=== PATIENT | male | born 1940 | race Caucasian/White ===

== ENCOUNTER 2017-11-23 17:51 | Inpatient (IN) | payer MEDICARE ==
[~2017-11-23] VITALS: Ht 167.6 cm; Wt 81.6 kg
[2017-11-23] MEDS ORDERED: AZEL137S7 BNOSTRILS (18:14)
[2017-11-23] MEDS ORDERED: META800T85 PO (18:14)
[2017-11-23] MEDS ORDERED: AMIO200T2 PO (18:14)
[2017-11-23] MEDS ORDERED: CALC500T3 PO (18:14)
[2017-11-23] MEDS ORDERED: METO5TAB7 PO (18:14)
[2017-11-23] MEDS ORDERED: LEVO150T8 PO (18:14)
[2017-11-23] MEDS ORDERED: CLON0.1T14 PO (18:14)
[2017-11-23] MEDS ORDERED: IV NORMAL SALINE 1000 ML BAG IV ONE (18:15)
--- NOTE | 2017-11-23 18:30 | NUR ---
EKG DONE. PT NOW AT CT.
[2017-11-23] MEDS ORDERED: [UNRECOGNIZED DRUG - OTHER] PO (18:45)
[2017-11-23] MEDS ORDERED: MIDO10TA PO (18:45)
[2017-11-23] MEDS ORDERED: NYST5ORA PO (18:45)
[2017-11-23] MEDS ORDERED: CINA30TA2 PO (18:45)
[2017-11-23] MEDS ORDERED: CICL6.1H5 INH (18:45)
[2017-11-23] MEDS ORDERED: CHOL100045 PO (18:45)
[2017-11-23] MEDS ORDERED: CARV12.5 PO (18:48)
[2017-11-23] MEDS ORDERED: PANT40TA2 PO (18:48)
[2017-11-23] MEDS ORDERED: CYAN10009 PO (18:48)
[2017-11-23] MEDS ORDERED: COLC0.6C3 PO (18:48)
[2017-11-23] MEDS ORDERED: PRED2.5T PO (18:48)
[2017-11-23] MEDS ORDERED: IPRA0.2S48 IH (19:11)
[2017-11-23] MEDS ORDERED: SEVE800T8 PO (19:11)
[2017-11-23] MEDS ORDERED: SILD50TA PO (19:11)
[2017-11-23] MEDS ORDERED: TRAZ-144 PO (19:11)
[2017-11-23] MEDS ORDERED: MONT10TA22 PO (19:11)
[2017-11-23] MEDS ORDERED: PSYLLIUM PO (19:11)
[2017-11-23] MEDS ORDERED: FEBU40TA PO (19:11)
[2017-11-23] MEDS ORDERED: HYDROCORTISONE PR (19:11)
[2017-11-23] MEDS ORDERED: DIPHENOXYLATE PO (19:11)
[2017-11-23] MEDS ORDERED: DIGO125T PO (19:11)
[2017-11-23] MEDS ORDERED: TAMS-3 PO (19:11)
[2017-11-23] MEDS ORDERED: FINA5TAB3 PO (19:11)
[2017-11-23] MEDS ORDERED: OMAL150V SQ (19:18)
[2017-11-23] MEDS ORDERED: ONDA4TAB5 PO (19:18)
[2017-11-23] MEDS ORDERED: RANI300T7 PO (19:18)
[2017-11-23] MEDS ORDERED: FURO-151 PO (19:18)
[2017-11-23] MEDS ORDERED: LEVO330T PO (19:18)
[2017-11-23] MEDS ORDERED: LACTOBACILLUS PO (19:18)
[2017-11-23] MEDS ORDERED: DICL100G16 TP (19:18)
--- NOTE | 2017-11-23 19:18 | NUR ---
AT BEDSIDE FOR MSE.
--- NOTE | 2017-11-23 19:18 | NUR ---
REPORT TAKEN FROM DAY SHIFT RN. ASSUMING PT CARE AT THIS TIME.
[2017-11-23 19:20] LABS: EOSINOPHILS # (AUTO) 0.4 K/uL (0.0-0.7)
--- NOTE | 2017-11-23 19:20 | NUR ---
PT BACK FORM CT. REPORT GIVEN TO LINCOLN GALO.
[2017-11-23 19:26] LABS: BASOPHILS # (AUTO) 0.1 K/uL (0.0-8.0); EOSINOPHILS % (AUTO) 3.9 % (0.0-7.0); HEMOGLOBIN 8.8 g/dL (12.5-16.3)
[2017-11-23 19:29] LABS: CARBON DIOXIDE 31 mmol/L (21-32); CHLORIDE 97 mmol/L (98-107); CREATININE 2.9 mg/dL (0.6-1.3); GLUCOSE 106 mg/dL (74-106); POTASSIUM 3.6 mmol/L (3.5-5.1); UREA NITROGEN, BLOOD 23 mg/dL (7-18)
[2017-11-23] MEDS ORDERED: ONDANSETRON 4 MG/2 ML VIAL IV ONE (19:30)
[2017-11-23] MEDS ORDERED: MORPHINE SULFATE 2 MG/1 ML DISP.SYRIN IV ONE (19:30)
[2017-11-23 19:31] LABS: BASOPHILS % (AUTO) 1.1 % (0.0-2.0); HEMATOCRIT 26.5 % (36.7-47.1); LYMPHOCYTES # (AUTO) 0.7 K/uL (20.0-40.0); LYMPHOCYTES % (AUTO) 6.6 % (20.5-51.5); MEAN CORPUSCULAR HEMOGLOBIN 30.7 uug (23.8-33.4); MEAN CORPUSCULAR HGB CONC 33 g/dL (32.5-36.3); MEAN CORPUSCULAR VOLUME 92.8 fL (73.0-96.2); MONOCYTES # (AUTO) 0.9 K/uL (2.0-10.0); MONOCYTES % (AUTO) 8.7 % (0.0-11.0); NEUTROPHILS # (AUTO) 8.5 K/uL (1.8-8.9); NEUTROPHILS % (AUTO) 79.7 % (38.5-71.5); PLATELET COUNT (AUTO) 297 K/uL (152-348); RED BLOOD CELL COUNT(AUTO) 2.86 MIL/uL (4.06-5.63); WHITE BLOOD COUNT (AUTO) 10.6 K/uL (3.6-10.2)
[2017-11-23 19:42] LABS: ALANINE AMINOTRANSFERASE 24 U/L (16-63); ALKALINE PHOSPHATASE 166 U/L (50-136); ASPARTATE AMINOTRANSFERASE 19 U/L (15-37); BILIRUBIN,DIRECT 0.2 mg/dL (0.0-0.2); BILIRUBIN,TOTAL 0.5 mg/dL (0.2-1.0); TOTAL PROTEIN, SERUM 6.6 g/dL (6.4-8.2)
[2017-11-23] MEDS ORDERED: ONDANSETRON 4 MG/2 ML VIAL ONE (19:47)
[2017-11-23] MEDS ORDERED: MORPHINE SULFATE 2 MG/1 ML DISP.SYRIN ONE (19:48)
--- NOTE | 2017-11-23 20:00 | NUR ---
PT HAS OPEN WEEPING SORES ON BOTH LOWER EXTREMITIES WHICH HE STATES ARE "FROM EXTRA FLUID NOT TAKEN FROM DIALYSIS"
--- NOTE | 2017-11-23 21:03 | NUR ---
REPORT GIVEN TO CLOVER العراقي.
[2017-11-23] MEDS ORDERED: PANTOPRAZOLE SODIUM IV 80 MG in IV DEXTROSE 5% 100 ML IV ONE (22:00)
[2017-11-23 22:20] LABS: DIGOXIN 1.1 ng/mL (0.9-2.0)
[2017-11-23 22:26] LABS: THYROID STIMULATING HORMONE 5.937 mIU/mL (0.358-3.740)
[2017-11-23] MEDS ORDERED: CLOPIDOGREL 75 MG TABLET PO ONE (22:30)
[2017-11-23] MEDS ORDERED: PANTOPRAZOLE SODIUM 40 MG VIAL ONE (22:50)
--- NOTE | 2017-11-23 22:57 | NUR ---
PT STATED HE SOMETIMES USES A BIPAP AT NIGHT
--- NOTE | 2017-11-23 22:57 | NUR ---
Pt. admitted to TELE, under care of Dr. WHITLEY Belongs List completed
--- NOTE | 2017-11-23 23:30 | NUR ---
NEW ADMIT FROM ER ADMITTED FOR HYPOTENSION, ON TELE WITH SINUS RHYTHM AT 74 C/O OF MILD PAIN TO BLES AWAITING ORDERS, NO RESP DISTRESS AT THIS TIME. BP IS 133/70. WILL CONTINUE TO MONITOR PT
[2017-11-24] VITALS (8 sets, daily range): BP systolic 87–108; BP diastolic 43–54
[2017-11-24] MEDS ORDERED: MAGNESIUM HYDROXIDE 30 ML LIQUID UDC PO PRN (00:30)
[2017-11-24] MEDS ORDERED: METAXALONE 800 MG TABLET PO PRN (00:30)
[2017-11-24] MEDS ORDERED: IPRATROPIUM BROMIDE 0.5 MG/2.5 ML NEBU IH PRN (00:30)
[2017-11-24] MEDS ORDERED: Medication Not On Formulary EA (Midodrine Hcl 10 MG) PO SCH (00:30)
[2017-11-24] MEDS ORDERED: CALCIUM CARBONATE 500 MG TABLET PO PRN (00:30)
[2017-11-24] MEDS ORDERED: ONDANSETRON 4 MG/2 ML VIAL IV PRN (00:30)
[2017-11-24] MEDS ORDERED: ACETAMINOPHEN 325 MG TABLET PO PRN (00:30)
[2017-11-24] MEDS ORDERED: TRAZODONE 50 MG TABLET PO PRN (00:30)
[2017-11-24] MEDS: HYDROCODONE/APAP 5-325MG TABLET PO PRN ×2 (02:22→08:12)
[2017-11-24] MEDS ORDERED: HYDROCODONE/APAP 5-325MG TABLET ONE (02:34)
[2017-11-24] MEDS: PANTOPRAZOLE SODIUM 40 MG TABLET.DR PO SCH (08:06)
[2017-11-24] MEDS: LEVOTHYROXINE SODIUM 150 MCG TABLET PO SCH (08:14)
[2017-11-24] MEDS ORDERED: DIPHENOXYLATE HCL/ATROP SULF TABLET PO PRN (08:15)
[2017-11-24] MEDS: METRONIDAZOLE 500 MG/NS 100ML 500 MG in PREMIXED 1 EACH IV SCH ×3 (08:36→21:26)
--- NOTE | 2017-11-24 08:42 | NUR ---
Nurse Notes: Patient was seen by Dr Veloz, nephrology seen patient at bedside, will schedule dialysis tomorrow, medicated for low back pain with Colbert 5/325, IV antibiotics Flagyl is infusing thru hep lock right antecubital.
[2017-11-24] MEDS ORDERED: LEVOCARNITINE 330 MG TABLET PO SCH (09:00)
[2017-11-24] MEDS ORDERED: Medication Not On Formulary EA (Colchicine 0.6 MG) PO SCH (09:00)
[2017-11-24] MEDS ORDERED: MONTELUKAST SODIUM 10 MG TABLET PO SCH (09:00)
[2017-11-24] MEDS ORDERED: RANITIDINE HCL 300 MG PO SCH (09:00)
[2017-11-24] MEDS ORDERED: LACTOBACILLUS PO SCH (09:00)
[2017-11-24] MEDS ORDERED: PSYLLIUM 0.52 GM PO SCH (09:00)
[2017-11-24] MEDS ORDERED: TAMSULOSIN HCL 0.4 MG CAP.SR.24H PO SCH (09:00)
[2017-11-24] MEDS ORDERED: CHOLECALCIFEROL PO SCH (09:00)
[2017-11-24] MEDS: predniSONE 2.5 MG TABLET PO SCH (09:53)
[2017-11-24] MEDS: COLCHICINE 0.6 MG TABLET PO SCH ×2 (09:53→18:08)
[2017-11-24] MEDS: CYANOCOBALAMIN 1,000 MCG TABLET PO SCH (09:53)
[2017-11-24] MEDS: LACTOBACILLUS RHAMNOSUS GG 1 EACH CAPSULE PO SCH ×2 (09:53→21:26)
[2017-11-24] MEDS: CINACALCET HCL 30 MG TABLET PO SCH (09:54)
[2017-11-24] MEDS: CHOLECALCIFEROL 400 UNITS TABLET PO SCH (09:54)
[2017-11-24] MEDS: VANCOMYCIN FOR PO/GT/NG USE PO SCH ×4 (09:54→23:59)
[2017-11-24] MEDS: PSYLLIUM SEED PACKET PO SCH (09:54)
[2017-11-24] MEDS ORDERED: EPOETIN ALFA 20,000 UNIT/ML ML SQ ONE (09:59)
[2017-11-24] MEDS: SEVELAMER CARBONATE 800 MG TABLET PO SCH ×2 (12:41→18:00)
[2017-11-24] MEDS: CARVEDILOL 12.5 MG TABLET PO SCH ×2 (13:12→18:00)
[2017-11-24] MEDS: AMIODARONE HCL 200 MG TABLET PO SCH ×2 (13:13→18:02)
[2017-11-24] MEDS: SILDENAFIL 20 MG TABLET PO SCH ×2 (14:47→21:26)
[2017-11-24 15:09] LABS: BASOPHILS # (AUTO) 0.1 K/uL (0.0-8.0); BASOPHILS % (AUTO) 1.1 % (0.0-2.0); EOSINOPHILS # (AUTO) 0.3 K/uL (0.0-0.7); EOSINOPHILS % (AUTO) 2.5 % (0.0-7.0); HEMATOCRIT 24.6 % (36.7-47.1); LYMPHOCYTES # (AUTO) 0.4 K/uL (20.0-40.0); LYMPHOCYTES % (AUTO) 3.2 % (20.5-51.5); MEAN CORPUSCULAR HEMOGLOBIN 30.3 uug (23.8-33.4); MEAN CORPUSCULAR HGB CONC 33 g/dL (32.5-36.3); MEAN CORPUSCULAR VOLUME 92.8 fL (73.0-96.2); MONOCYTES % (AUTO) 8.7 % (0.0-11.0); NEUTROPHILS # (AUTO) 9.4 K/uL (1.8-8.9); NEUTROPHILS % (AUTO) 84.5 % (38.5-71.5); PLATELET COUNT (AUTO) 271 K/uL (152-348); RED BLOOD CELL COUNT(AUTO) 2.64 MIL/uL (4.06-5.63); WHITE BLOOD COUNT (AUTO) 11.2 K/uL (3.6-10.2)
[2017-11-24 15:22] LABS: CARBON DIOXIDE 33 mmol/L (21-32); CHLORIDE 96 mmol/L (98-107); CREATININE 4.2 mg/dL (0.6-1.3); GLUCOSE 154 mg/dL (74-106); POTASSIUM 4.3 mmol/L (3.5-5.1); UREA NITROGEN, BLOOD 37 mg/dL (7-18)
[2017-11-24] MEDS ORDERED: COLLAGENASE OINT 30 GM TUBE TOP SCH (16:30)
--- NOTE | 2017-11-24 16:30 | NUR ---
Lower leg dressing not changed, Santyl ointment is non-formulary. was at bedside earlier, Pharmacy notified that the could be notified if Santyl ointment can be obtained. Dressing is dry and intact, no dressing change was done.
--- NOTE | 2017-11-24 16:33 | NUR ---
Patient's wanted updates on the patient, MANAGER CRITICAL CARE Thompson Hartman was called and return call and answer all of 's questions, was very grateful, for nurse and MANAGER CRITICAL CARE to give immediate answers. IV site was restarted earlier by ICU nurse, remains on IV flagyl. patient was given 1 dose of Procrit.
[2017-11-24] MEDS: Z GUARD REMEDY PASTE 57 GM TUBE TOP PRN (18:47)
[2017-11-24] MEDS ORDERED: FINASTERIDE 5 MG TABLET PO SCH (21:00)
[2017-11-25 00:05] VITALS: BP 110/68
[2017-11-25] MEDS: SILDENAFIL 20 MG TABLET PO SCH (06:00)
[2017-11-25] MEDS: LEVOTHYROXINE SODIUM 150 MCG TABLET PO SCH (06:07)
[2017-11-25] MEDS: METRONIDAZOLE 500 MG/NS 100ML 500 MG in PREMIXED 1 EACH IV SCH ×2 (06:07→16:09)
[2017-11-25] MEDS: VANCOMYCIN FOR PO/GT/NG USE PO SCH ×4 (06:07→23:25)
[2017-11-25] MEDS: PANTOPRAZOLE SODIUM 40 MG TABLET.DR PO SCH (06:07)
[2017-11-25 06:10] VITALS: BP 114/61
[2017-11-25 06:41] VITALS: BP 108/57
[2017-11-25 06:49] LABS: BASOPHILS # (AUTO) 0.1 K/uL (0.0-8.0); BASOPHILS % (AUTO) 1.2 % (0.0-2.0); EOSINOPHILS # (AUTO) 0.4 K/uL (0.0-0.7); EOSINOPHILS % (AUTO) 3.9 % (0.0-7.0); HEMATOCRIT 26.2 % (36.7-47.1); HEMOGLOBIN 8.3 g/dL (12.5-16.3); LYMPHOCYTES # (AUTO) 0.7 K/uL (20.0-40.0); LYMPHOCYTES % (AUTO) 7.4 % (20.5-51.5); MEAN CORPUSCULAR HEMOGLOBIN 29.8 uug (23.8-33.4); MEAN CORPUSCULAR HGB CONC 32 g/dL (32.5-36.3); MEAN CORPUSCULAR VOLUME 93.6 fL (73.0-96.2); MONOCYTES % (AUTO) 9.9 % (0.0-11.0); NEUTROPHILS # (AUTO) 7.7 K/uL (1.8-8.9); NEUTROPHILS % (AUTO) 77.6 % (38.5-71.5); PLATELET COUNT (AUTO) 275 K/uL (152-348); RED BLOOD CELL COUNT(AUTO) 2.79 MIL/uL (4.06-5.63); WHITE BLOOD COUNT (AUTO) 9.9 K/uL (3.6-10.2)
[2017-11-25] MEDS ORDERED: PANTOPRAZOLE SODIUM 40 MG TABLET.DR PO SCH (07:00)
[2017-11-25 07:11] LABS: CARBON DIOXIDE 31 mmol/L (21-32); CHLORIDE 100 mmol/L (98-107); CHOLESTEROL 109 mg/dL (<200); CREATININE 4.9 mg/dL (0.6-1.3); GLUCOSE 112 mg/dL (74-106); HDL CHOLESTEROL 30 mg/dL (40-60); MAGNESIUM 1.8 mg/dL (1.8-2.4); PHOSPHOROUS 4.1 mg/dL (2.5-4.9); POTASSIUM 4.4 mmol/L (3.5-5.1); TRIGLYCERIDES 142 MG/DL (30-150); UREA NITROGEN, BLOOD 43 mg/dL (7-18)
--- NOTE | 2017-11-25 07:15 | NUR ---
Received pt in bed, no acute distress noted. On Ns at 3L/min, respirations even and unlabored. Pt denies any SOB. IV to right F/A intact and patent. AV fistula to left hand, bruit present. Pt was seen by histology specialist this am, see notes. Call light within reach, bed kept low/locked position.
[2017-11-25 07:30] LABS: THYROID STIMULATING HORMONE 7.733 mIU/mL (0.358-3.740)
[2017-11-25] MEDS: CARVEDILOL 12.5 MG TABLET PO SCH (08:00)
[2017-11-25] MEDS: LACTOBACILLUS RHAMNOSUS GG 1 EACH CAPSULE PO SCH ×2 (08:39→21:33)
[2017-11-25] MEDS: CINACALCET HCL 30 MG TABLET PO SCH (08:39)
[2017-11-25] MEDS: PSYLLIUM SEED PACKET PO SCH (08:39)
[2017-11-25] MEDS: SEVELAMER CARBONATE 800 MG TABLET PO SCH ×3 (08:40→17:31)
[2017-11-25] MEDS: COLCHICINE 0.6 MG TABLET PO SCH ×2 (08:40→17:31)
[2017-11-25] MEDS: CYANOCOBALAMIN 1,000 MCG TABLET PO SCH (08:40)
[2017-11-25] MEDS: CHOLECALCIFEROL 400 UNITS TABLET PO SCH (08:40)
[2017-11-25] MEDS: predniSONE 2.5 MG TABLET PO SCH (08:40)
[2017-11-25] MEDS: AMIODARONE HCL 200 MG TABLET PO SCH ×2 (08:40→17:32)
--- NOTE | 2017-11-25 09:59 | NUR ---
WOUND CARE CONSULT: PT PRESENTS WITH MULTIPLE DRY ULCERS TO LOWER LEGS AND DEEP TISSUE INJURY (INTACT) TO RT HEEL. DR HEREDIA WAS IN TO EXAMINE PT AND PEELING CRUSTY SKIN WAS REMOVED FROM RT HEEL BY DPM. RECOMMENDATIONS MADE FOR SKIN PROTECTION AND ORDERS RECEIVED FROM DR DAVILA FOR WOUND CARE. DISCUSSED WITH NURSING STAFF. ALL SKIN PROTECTION MEASURES IN PLACE. WILL SEE PRN. CURRENT JAVON SCORE IS 14. MD IN AGREEMENT WITH PLAN OF CARE. Addendum: 11/25/17 at 1002 by RONNELL SNOWDEN RN Amended: Links added.
[2017-11-25 11:34] VITALS: BP 113/58
[2017-11-25] MEDS: MIDODRINE HCL 5 MG TABLET PO PRN (11:37)
--- NOTE | 2017-11-25 11:37 | NUR ---
Midodrine Po given for schedule HD in one hour. b/p 100/53. Physical therapist at bedside for evaluation.
--- NOTE | 2017-11-25 12:30 | NUR ---
HD initiated, no distress noted.
[2017-11-25 15:22] VITALS: BP 119/52
--- NOTE | 2017-11-25 15:30 | NUR ---
HD completed with 2.5L output. No acute distress noted. Pt sleeping at this time.
[2017-11-25] MEDS: CADEXOMER IODINE 40 GM TUBE TOP SCH (16:10)
--- NOTE | 2017-11-25 18:30 | NUR ---
No acute distress noted,1st step air mattress on as requested by quarrying specialist. Pt denies any pain or discomfort.
[2017-11-25 20:00] VITALS: BP 119/63
[2017-11-25] MEDS: CLOTRIMAZOLE 1% CREAM 30 GM TUBE TOP SCH ×3 (21:00→21:37)
[2017-11-25] MEDS: Z GUARD REMEDY PASTE 57 GM TUBE TOP PRN (21:34)
--- NOTE | 2017-11-25 23:33 | NUR ---
Lotrimin is not given because it is not available.
[2017-11-25] MEDS: HYDROCODONE/APAP 5-325MG TABLET PO PRN (23:54)
[2017-11-26 04:18] VITALS: BP 116/60
[2017-11-26] MEDS: VANCOMYCIN FOR PO/GT/NG USE PO SCH ×3 (06:27→17:31)
[2017-11-26] MEDS: LEVOTHYROXINE SODIUM 150 MCG TABLET PO SCH (06:27)
[2017-11-26] MEDS: PANTOPRAZOLE SODIUM 40 MG TABLET.DR PO SCH (06:27)
[2017-11-26 07:38] LABS: BASOPHILS # (AUTO) 0.1 K/uL (0.0-8.0); BASOPHILS % (AUTO) 1.3 % (0.0-2.0); EOSINOPHILS # (AUTO) 0.5 K/uL (0.0-0.7); EOSINOPHILS % (AUTO) 5.6 % (0.0-7.0); HEMATOCRIT 27.9 % (36.7-47.1); LYMPHOCYTES # (AUTO) 0.9 K/uL (20.0-40.0); LYMPHOCYTES % (AUTO) 9.5 % (20.5-51.5); MEAN CORPUSCULAR HEMOGLOBIN 30.3 uug (23.8-33.4); MEAN CORPUSCULAR HGB CONC 32 g/dL (32.5-36.3); MEAN CORPUSCULAR VOLUME 94.1 fL (73.0-96.2); MONOCYTES # (AUTO) 0.8 K/uL (2.0-10.0); MONOCYTES % (AUTO) 8.6 % (0.0-11.0); PLATELET COUNT (AUTO) 252 K/uL (152-348); RED BLOOD CELL COUNT(AUTO) 2.96 MIL/uL (4.06-5.63); WHITE BLOOD COUNT (AUTO) 9.3 K/uL (3.6-10.2)
[2017-11-26 07:43] LABS: ALANINE AMINOTRANSFERASE 21 U/L (16-63); ALKALINE PHOSPHATASE 173 U/L (50-136); ASPARTATE AMINOTRANSFERASE 20 U/L (15-37); BILIRUBIN,TOTAL 0.5 mg/dL (0.2-1.0); CARBON DIOXIDE 33 mmol/L (21-32); CHLORIDE 98 mmol/L (98-107); CREATININE 4.4 mg/dL (0.6-1.3); GLUCOSE 81 mg/dL (74-106); PHOSPHOROUS 3.3 mg/dL (2.5-4.9); POTASSIUM 4.2 mmol/L (3.5-5.1); TOTAL PROTEIN, SERUM 6.7 g/dL (6.4-8.2); UREA NITROGEN, BLOOD 37 mg/dL (7-18)
[2017-11-26] MEDS: COLCHICINE 0.6 MG TABLET PO SCH ×2 (09:01→17:28)
[2017-11-26] MEDS: PSYLLIUM SEED PACKET PO SCH (09:01)
[2017-11-26] MEDS: CHOLECALCIFEROL 400 UNITS TABLET PO SCH (09:01)
[2017-11-26] MEDS: SEVELAMER CARBONATE 800 MG TABLET PO SCH ×3 (09:01→17:28)
[2017-11-26] MEDS: CYANOCOBALAMIN 1,000 MCG TABLET PO SCH (09:01)
[2017-11-26] MEDS: LACTOBACILLUS RHAMNOSUS GG 1 EACH CAPSULE PO SCH ×2 (09:01→20:27)
[2017-11-26] MEDS: CINACALCET HCL 30 MG TABLET PO SCH (09:11)
[2017-11-26] MEDS: CLOTRIMAZOLE 1% CREAM 30 GM TUBE TOP SCH ×2 (09:11→20:32)
[2017-11-26] MEDS: AMIODARONE HCL 200 MG TABLET PO SCH ×2 (09:11→17:28)
[2017-11-26] MEDS: CADEXOMER IODINE 40 GM TUBE TOP SCH (09:14)
[2017-11-26] MEDS: predniSONE 2.5 MG TABLET PO SCH (09:14)
[2017-11-26 11:36] VITALS: BP 117/65
[2017-11-26 13:54] LABS: IRON, SERUM 14 ug/dL (50-175)
[2017-11-26 16:26] VITALS: BP 120/70
--- NOTE | 2017-11-26 20:00 | NUR ---
RECEIVED PT AWAKE IN BED, HE'S ALERT AND ORIENTED X3 AND ABLE TO STATE HIS NEEDS. HE DENIES PAIN OR DISCOMFORT, CALL LIGHT LEFT WITHIN PT'S REACH, WILL CONTINUE TO MONITOR PT
[2017-11-26 20:11] VITALS: BP 121/65
[2017-11-27] MEDS: VANCOMYCIN FOR PO/GT/NG USE PO SCH ×5 (00:31→23:28)
[2017-11-27] MEDS: HYDROCODONE/APAP 5-325MG TABLET PO PRN (02:46)
[2017-11-27 04:00] VITALS: BP 139/71
[2017-11-27] MEDS: LEVOTHYROXINE SODIUM 150 MCG TABLET PO SCH (06:27)
[2017-11-27] MEDS: PANTOPRAZOLE SODIUM 40 MG TABLET.DR PO SCH (06:27)
--- NOTE | 2017-11-27 08:00 | NUR ---
Pt forgetful. Pt is in no acute distress. Call light is within reach. Awaiting Dialysis today. Bruit present on left arm av shunt.
[2017-11-27 09:10] LABS: BASOPHILS # (AUTO) 0.1 K/uL (0.0-8.0); BASOPHILS % (AUTO) 1.3 % (0.0-2.0); EOSINOPHILS # (AUTO) 0.4 K/uL (0.0-0.7); HEMATOCRIT 28.5 % (36.7-47.1); HEMOGLOBIN 9.2 g/dL (12.5-16.3); LYMPHOCYTES # (AUTO) 0.9 K/uL (20.0-40.0); LYMPHOCYTES % (AUTO) 8.8 % (20.5-51.5); MEAN CORPUSCULAR HEMOGLOBIN 30.1 uug (23.8-33.4); MEAN CORPUSCULAR HGB CONC 32 g/dL (32.5-36.3); MEAN CORPUSCULAR VOLUME 93.5 fL (73.0-96.2); MONOCYTES % (AUTO) 10.2 % (0.0-11.0); NEUTROPHILS # (AUTO) 7.7 K/uL (1.8-8.9); NEUTROPHILS % (AUTO) 75.7 % (38.5-71.5); PLATELET COUNT (AUTO) 242 K/uL (152-348); RED BLOOD CELL COUNT(AUTO) 3.05 MIL/uL (4.06-5.63); WHITE BLOOD COUNT (AUTO) 10.2 K/uL (3.6-10.2)
[2017-11-27] MEDS: PSYLLIUM SEED PACKET PO SCH (09:15)
[2017-11-27] MEDS: CHOLECALCIFEROL 400 UNITS TABLET PO SCH (09:16)
[2017-11-27] MEDS: CYANOCOBALAMIN 1,000 MCG TABLET PO SCH (09:16)
[2017-11-27] MEDS: SEVELAMER CARBONATE 800 MG TABLET PO SCH ×3 (09:16→17:55)
[2017-11-27] MEDS: LACTOBACILLUS RHAMNOSUS GG 1 EACH CAPSULE PO SCH ×2 (09:16→20:28)
[2017-11-27] MEDS: CINACALCET HCL 30 MG TABLET PO SCH (09:16)
[2017-11-27] MEDS: AMIODARONE HCL 200 MG TABLET PO SCH ×2 (09:17→17:55)
[2017-11-27] MEDS: predniSONE 2.5 MG TABLET PO SCH (09:17)
[2017-11-27] MEDS: COLCHICINE 0.6 MG TABLET PO SCH ×2 (09:17→17:55)
[2017-11-27] MEDS: CADEXOMER IODINE 40 GM TUBE TOP SCH (09:19)
[2017-11-27] MEDS: MIDODRINE HCL 5 MG TABLET PO PRN (09:19)
[2017-11-27] MEDS: CLOTRIMAZOLE 1% CREAM 30 GM TUBE TOP SCH ×2 (09:20→20:28)
[2017-11-27 09:21] LABS: ALANINE AMINOTRANSFERASE 40 U/L (16-63); ALKALINE PHOSPHATASE 236 U/L (50-136); ASPARTATE AMINOTRANSFERASE 53 U/L (15-37); BILIRUBIN,TOTAL 0.5 mg/dL (0.2-1.0); CARBON DIOXIDE 35 mmol/L (21-32); CHLORIDE 98 mmol/L (98-107); CREATININE 5.7 mg/dL (0.6-1.3); GLUCOSE 94 mg/dL (74-106); PHOSPHOROUS 3.4 mg/dL (2.5-4.9); POTASSIUM 4.3 mmol/L (3.5-5.1); TOTAL PROTEIN, SERUM 6.6 g/dL (6.4-8.2); UREA NITROGEN, BLOOD 48 mg/dL (7-18)
[2017-11-27 11:41] VITALS: BP 120/59
[2017-11-27] MEDS ORDERED: SOD FERRIC GLUC COMPLX/SUCROSE 125 MG in IV NORMAL SALINE 100 ML IV SCH (14:00)
[2017-11-27 15:26] VITALS: BP 114/65
--- NOTE | 2017-11-27 18:00 | NUR ---
Pt is in no acute distress. Dressing changed on LE's as ordered. noted right and left foot wound and serous drainage. Pt tolerated dialysis
--- NOTE | 2017-11-27 20:20 | NUR ---
A/0 X4 lying on a air mattress On Med Surg status O2A2 2l N/c at 97% on contact Isolation for c-diff. Lungs clear bilat. Lt a/v shut good thrill and bruitt, Abd soft non tender b/s x4 Bilat heel wounds dressing c/d/i Denies of any distress. Side rails up call light within reach bed in lowest postion bed side table within arm reach.
[2017-11-27 20:32] VITALS: BP 126/79
[2017-11-28] MEDS: HYDROCODONE/APAP 5-325MG TABLET PO PRN ×2 (01:21→06:22)
[2017-11-28 04:51] VITALS: BP 125/75
[2017-11-28] MEDS: LEVOTHYROXINE SODIUM 150 MCG TABLET PO SCH (06:21)
[2017-11-28] MEDS: VANCOMYCIN FOR PO/GT/NG USE PO SCH ×3 (06:21→17:28)
[2017-11-28] MEDS: PANTOPRAZOLE SODIUM 40 MG TABLET.DR PO SCH (06:21)
--- NOTE | 2017-11-28 06:39 | NUR ---
Lying in bed c/o lower back pain given one tab of norco.
[2017-11-28] MEDS ORDERED: MAGNESIUM HYDROXIDE 30 ML LIQUID UDC PO ONE (07:45)
[2017-11-28] MEDS ORDERED: DIGOXIN 125 MCG TABLET PO SCH (07:51)
[2017-11-28] MEDS: SEVELAMER CARBONATE 800 MG TABLET PO SCH ×3 (08:00→17:26)
--- NOTE | 2017-11-28 08:00 | NUR ---
Pt c/o constipation. Gave suppository and MOM for constipation. Dressing changed on LE's as ordered - noted scant serous drainage noted.
[2017-11-28] MEDS: PSYLLIUM SEED PACKET PO SCH (08:41)
[2017-11-28] MEDS: COLCHICINE 0.6 MG TABLET PO SCH ×2 (08:41→16:42)
[2017-11-28] MEDS: CHOLECALCIFEROL 400 UNITS TABLET PO SCH (08:41)
[2017-11-28] MEDS: CINACALCET HCL 30 MG TABLET PO SCH (08:41)
[2017-11-28] MEDS: predniSONE 2.5 MG TABLET PO SCH (08:42)
[2017-11-28] MEDS: LACTOBACILLUS RHAMNOSUS GG 1 EACH CAPSULE PO SCH ×2 (08:42→21:09)
[2017-11-28] MEDS: CYANOCOBALAMIN 1,000 MCG TABLET PO SCH (08:42)
[2017-11-28] MEDS: CADEXOMER IODINE 40 GM TUBE TOP SCH (08:43)
[2017-11-28] MEDS: AMIODARONE HCL 200 MG TABLET PO SCH ×2 (08:47→16:42)
[2017-11-28] MEDS: AMMONIUM LACTATE 12% LOTION 225 GM BOTTLE TP SCH ×2 (08:47→17:26)
[2017-11-28] MEDS: CLOTRIMAZOLE 1% CREAM 30 GM TUBE TOP SCH ×2 (08:58→21:09)
[2017-11-28] MEDS ORDERED: BISACODYL 10 MG SUPP.RECT RC ONE (09:30)
--- NOTE | 2017-11-28 10:00 | NUR ---
Manual Disimpaction done as ordered due to pt was having difficulty defecating. Able to remove large amount of stool- pt states relief
[2017-11-28 11:17] VITALS: BP 137/79
[2017-11-28] MEDS ORDERED: MAGNESIUM CITRATE 296 ML BOTTLE PO ONE (13:00)
[2017-11-28] MEDS ORDERED: GLYCERIN ADULT RECTAL SUPP EACH RC ONE (13:00)
[2017-11-28] MEDS: METOPROLOL TARTRATE 25 MG TABLET PO SCH ×2 (13:04→20:43)
[2017-11-28 15:04] VITALS: BP 132/77
[2017-11-28] MEDS ORDERED: HYDROCORTISONE 2.5 % RECTAL CREAM 28.35 GM TUBE RC SCH (17:00)
[2017-11-28] MEDS ORDERED: PRAMOXINE TP SCH (18:12)
[2017-11-28] MEDS ORDERED: HYDROCORTISONE TP SCH (18:12)
--- NOTE | 2017-11-28 19:30 | NUR ---
Received report from Day shift. A/o x4 Lying on air bed o2 2 l n/c lungs clear bilat. bilat heel wound dressing C/D/I. Remains on contact isolation for c-diff. Denies of any distress. Call light within reach. Side rails up. bed in lowest position.
[2017-11-28 20:00] VITALS: BP 124/74
[2017-11-28 20:43] VITALS: BP 124/77
--- NOTE | 2017-11-28 22:25 | NUR ---
CODE BLUE TEAM RESPONDED AND RESUSCITATIVE MEASURES INITIATED,[employer] MANAGEMENT ADVISER CHECKED PT IS DNR/DNI PER RADIO PROGRAM DIRECTOR,Carmel PIPER"S ORDERS AND NOTES,CONFIRMED WITH ,NICK ,THAT PT IS DNR/DNI.MADE HER AWARE THAT PT IS NOT DOING WELL.DR.O. RAMSEY NOTIFIED REGARDING CONDITION CHANGE AND CODE BLUE INITIATION.
--- NOTE | 2017-11-28 22:31 | NUR ---
Pt's not responding Code blue called.
--- NOTE | 2017-11-28 22:32 | NUR ---
RESUSCITATIVE PROCESS ENDED,PT WAS PRONOUNCED BY DR.DALLAS ARIZA.
--- NOTE | 2017-11-28 22:40 | NUR ---
DR. OZUNA AND MADE AWARE OF PT"s EXPIRATION.ACTIVE LISTENING PROVIDED TO .POST MORTEM CARE RENDERED.APPROPRIATE FORMS COMPLETED, AND SIGNED.
--- NOTE | 2017-11-28 23:50 | NUR ---
PER PT"S ,THEY WILL BE ON THEIR WAY TO THE HOSPITAL TO SEE PT AND TALK TO DR. Kassidy RAMSEY.
--- NOTE | 2017-11-29 00:15 | NUR ---
FAMILY COMMUNICATEDTO , REGARDING CONCERNS AND APPRECIATION EXTENDED TO PT.ALLOWED FAMILY TO VISIT AND GRIEVE WHILE WAITING FOR THE MORTICIAN TO TYPE [employer]. PT"S BELONGINGS GIVEN TO FAMILY.
--- NOTE | 2017-11-29 01:45 | NUR ---
RELEASE OF REMAINS SIGNED ACCORDINGLY AND [employer] P[employer]ED UP THE BODY.
== END 2017-11-29 01:49 | disposition expired | DRG 871 ==
LOC: ER 17:52 → TELE 22:51 → MED 11-25 15:30
PROVIDERS: ADMIT Internal Medicine; ATTEND Internal Medicine
PROC: 5A1D70Z Performance of Urinary Filtration, Intermittent, Less than 6 Hours Per Day (ICD-10-PCS; principal; 2017-11-25)
PROC: 0BH17EZ Insertion of Endotracheal Airway into Trachea, Via Natural or Artificial Opening (ICD-10-PCS; 2017-11-29)
DX: A41.9 Sepsis, unspecified organism (principal); N18.6 End stage renal disease; I21.A1 Myocardial infarction type 2; I13.2 Hypertensive heart and chronic kidney disease with heart failure and with stage 5 chronic kidney disease, or end stage renal disease; A04.71 Enterocolitis due to Clostridium difficile, recurrent; E44.0 Moderate protein-calorie malnutrition; D68.59 Other primary thrombophilia; I27.20 Pulmonary hypertension, unspecified; I95.3 Hypotension of hemodialysis; G90.8 Other disorders of autonomic nervous system; I50.31 Acute diastolic (congestive) heart failure; L97.329 Non-pressure chronic ulcer of left ankle with unspecified severity; L97.819 Non-pressure chronic ulcer of other part of right lower leg with unspecified severity; Z66 Do not resuscitate; I70.238 Atherosclerosis of native arteries of right leg with ulceration of other part of lower leg; I48.0 Paroxysmal atrial fibrillation; L89.619 Pressure ulcer of right heel, unspecified stage; J44.9 Chronic obstructive pulmonary disease, unspecified; Z99.2 Dependence on renal dialysis; M51.36 Other intervertebral disc degeneration, lumbar region; K40.20 Bilateral inguinal hernia, without obstruction or gangrene, not specified as recurrent; Z96.653 Presence of artificial knee joint, bilateral; I70.243 Atherosclerosis of native arteries of left leg with ulceration of ankle; I25.10 Atherosclerotic heart disease of native coronary artery without angina pectoris; Z98.61 Coronary angioplasty status; D63.1 Anemia in chronic kidney disease; Z79.899 Other long term (current) drug therapy; K56.41 Fecal impaction; Z87.891 Personal history of nicotine dependence; N40.0 Benign prostatic hyperplasia without lower urinary tract symptoms; M19.90 Unspecified osteoarthritis, unspecified site; M10.9 Gout, unspecified; K64.9 Unspecified hemorrhoids; G89.29 Other chronic pain; E86.0 Dehydration; Z68.29 Body mass index [BMI] 29.0-29.9, adult; Z82.49 Family history of ischemic heart disease and other diseases of the circulatory system; K76.89 Other specified diseases of liver; E03.9 Hypothyroidism, unspecified
CPT/HCPCS: 36415; 70030-TC; 71045; 74018; 83550; 83605; 83735; 84100; 84443; 85025; 85730; 86850; 86900; 86901; 87040; 87400; 90937; 93005; 93307; 97116; 97530; A4663; C9113; J0885; J2270; J2405; J2916; J3370; J3490; J7030; J7050; J7060; J7512; J8499